=== PATIENT | female | born 1965 | race Caucasian/White ===

== ENCOUNTER 2021-01-10 08:56 | Outpatient (CLI) | payer BC | END 2021-01-10 08:57 | disposition home or self-care (01) | LOC: DTY/OP 08:56 | PROVIDERS: ATTEND Specialist | DX: Z01.818 Encounter for other preprocedural examination (principal); E66.01 Morbid (severe) obesity due to excess calories | CPT/HCPCS: 97802 ==

== ENCOUNTER 2021-02-23 12:43 | Outpatient (CLI) | payer BC ==
[2021-02-23 15:02] LABS: Anion Gap 17 mmol/L (10-20); BUN (Urea Nitrogen) 19 mg/dL (9.8-20.1); Calc. Creatinine Clearance 0 mL/min (70-130); Calcium 9.7 mg/dL (7.8-10.44); Carbon Dioxide 25 mmol/L (22-29); Chloride 101 mmol/L (98-107); Glucose 79 mg/dL (70-105); Potassium 3.2 mmol/L (3.5-5.1); Sodium 140 mmol/L (136-145)
[2021-02-24 12:43] LABS: SARS-CoV-2 PCR by NAA Not Detected (NotDetected)
== END 2021-02-23 12:44 | disposition home or self-care (01) ==
LOC: LABBT 12:43
PROVIDERS: ATTEND Specialist
DX: Z01.812 Encounter for preprocedural laboratory examination (principal); S93.409A Sprain of unspecified ligament of unspecified ankle, initial encounter; K64.9 Unspecified hemorrhoids; K59.09 Other constipation; I10 Essential (primary) hypertension; E66.01 Morbid (severe) obesity due to excess calories; M25.561 Pain in right knee; M25.562 Pain in left knee; F41.9 Anxiety disorder, unspecified; Z68.36 Body mass index [BMI] 36.0-36.9, adult; Z20.822 Contact with and (suspected) exposure to COVID-19
CPT/HCPCS: 80048; U0003; U0005

== ENCOUNTER 2021-02-23 12:45 | Inpatient (IN) | payer BC ==
[2021-02-27 12:03] VITALS: BMI 38.0
[2021-02-28] MEDS ORDERED: Acetaminophen 500 MG TAB ONE (06:05)
[2021-02-28] MEDS ORDERED: cefOXitin Sodium/Dextrose 2 GM/50 ML BAG ONE (06:06)
[2021-02-28] MEDS ORDERED: Scopolamine 1.5 mg/72 hour Patch ONE (06:06)
[2021-02-28] MEDS ORDERED: Ketorolac Tromethamine 30 MG/ML VIAL ONE (06:06)
[2021-02-28] MEDS ORDERED: Heparin 5,000 UNITS/ML VIAL ONE (06:22)
[2021-02-28] MEDS ORDERED: Fentanyl 100 MCG/2 ML VIAL ONE ×3 (07:02→10:00)
[2021-02-28] MEDS ORDERED: Bupivacaine 0.25% HCL 30 ML VIAL ONE (07:11)
[2021-02-28] MEDS ORDERED: Lidocaine 1% w/Epinephrine 1:100K 20 ML VIAL ONE (07:11)
[2021-02-28 07:25] LABS: Hemoglobin 12.8 g/dL (12.0-16.0); Mean Corpuscular HGB CONC 32.8 g/dL (32.0-36.0); Mean Corpuscular Hemoglobin 28.1 pg (27.0-31.0); Mean Corpuscular Volume 85.5 fL (78.0-98.0); Mean Platelet Volume 8.8 fL (7.4-10.4); Platelet Count 153 thou/uL (130-400); RBC Distribution Width 12.5 % (11.5-14.5); Red Blood Cell (RBC) Count 4.58 mill/uL (4.20-5.40)
[2021-02-28] MEDS ORDERED: Midazolam HCl 2 mg/2 ml Vial ONE (07:32)
[2021-02-28 07:35] LABS: Anion Gap 16 mmol/L (10-20); BUN (Urea Nitrogen) 11 mg/dL (9.8-20.1); Calc. Creatinine Clearance 90 mL/min (70-130); Calcium 8.9 mg/dL (7.8-10.44); Carbon Dioxide 23 mmol/L (22-29); Chloride 102 mmol/L (98-107); Glucose 94 mg/dL (70-105); Sodium 138 mmol/L (136-145)
[2021-02-28] MEDS ORDERED: Rocuronium Bromide 10 MG/ML (10ML VIAL) ONE (07:44)
[2021-02-28] MEDS ORDERED: Dexamethasone 20 MG/5 ML VIAL ONE (07:44)
[2021-02-28] MEDS ORDERED: Glycopyrrolate 0.2 MG/ML 5 ML SYRINGE ONE (07:44)
[2021-02-28] MEDS ORDERED: Lidocaine 1% PF 5 ML VIAL ONE (07:44)
[2021-02-28] MEDS ORDERED: PROPOFOL 200 MG/20 ML VIAL ONE (07:44)
[2021-02-28] MEDS ORDERED: Metoclopramide HCl 10 MG/2 ML VIAL ONE (07:44)
[2021-02-28] MEDS ORDERED: Ondansetron PF 4 MG/2 ML Vial ONE (07:44)
[2021-02-28 07:45] LABS: Potassium 2.8 mmol/L (3.5-5.1)
[2021-02-28 07:46] LABS: Band 1 % (5-11); Eosinophils 3 % (0-10); Lymphocytes 32 % (21-51); MDiff Complete? YES; Monocytes 7 % (0-10); Neutrophil 51 % (42-75); RBC Morphology Normal; Reactive Lymphocytes 5 % (0-10)
[2021-02-28] MEDS ORDERED: Ondansetron PF 4 MG/2 ML Vial IVP PRN (07:48)
[2021-02-28] MEDS ORDERED: Promethazine HCl 25 MG/ML VIAL IM PRN (07:48)
[2021-02-28] MEDS ORDERED: Morphine 4 MG/ML VIAL SLOW IVP PRN (07:48)
[2021-02-28] MEDS ORDERED: Morphine 2 MG/ML VIAL SLOW IVP PRN (07:48)
[2021-02-28] MEDS ORDERED: diphenhydrAMINE 50 MG/ML VIAL IVP PRN (07:48)
[2021-02-28] MEDS ORDERED: hydrALAZINE 20 MG/ML VIAL SLOW IVP PRN (07:48)
[2021-02-28 08:22] LABS: Hemoglobin A1c 5.1 % (4.0-6.0)
[2021-02-28] MEDS ORDERED: Sodium Chloride 0.9% (PF) 10 ML VIAL FS PRN (08:45)
[2021-02-28] MEDS ORDERED: Promethazine HCl 25 MG/ML VIAL ONE (09:26)
[2021-02-28] MEDS: Potassium Chloride 20 MEQ in Lactated Ringer's 1,000 ML IV SCH ×2 (11:00→17:07)
[2021-02-28] MEDS: ALPRAZolam 1 MG TAB PO SCH ×2 (11:23→21:54)
[2021-02-28] MEDS: Bupropion 150 MG XL TAB PO SCH (11:23)
[2021-02-28] MEDS: Pantoprazole 40 MG VIAL IVP SCH (11:23)
[2021-02-28] MEDS: Ketorolac Tromethamine 30 MG/ML VIAL IVP SCH ×3 (13:31→23:31)
[2021-02-28] MEDS: Hydrocodone-Acetamin 15 ML UDCUP PO PRN ×2 (13:34→18:30)
[2021-02-28] MEDS ORDERED: Enoxaparin Sodium 40 MG/0.4 ML SYRINGE SC SCH (21:00)
[2021-02-28] MEDS ORDERED: Acetaminophen 500 MG TAB PO PRN (21:11)
[2021-02-28] MEDS: QUEtiapine Fumarate ER 50 MG TAB PO SCH (21:54)
[2021-03-01] MEDS: Potassium Chloride 20 MEQ in Lactated Ringer's 1,000 ML IV SCH ×3 (00:22→16:15)
[2021-03-01] MEDS: Hydrocodone-Acetamin 15 ML UDCUP PO PRN ×2 (04:34→12:05)
[2021-03-01] MEDS: Levothyroxine Sodium 50 MCG TAB PO SCH (06:18)
[2021-03-01] MEDS: Ketorolac Tromethamine 30 MG/ML VIAL IVP SCH ×3 (06:18→18:57)
[2021-03-01 06:24] LABS: #Monocytes 0.7 thou/uL (0.11-0.59); #Neutrophils 7.3 thou/uL (1.40-6.50); %Basophils 0.1 % (0.0-1.0); %Eosinophils 0.1 % (0.0-10.0); %Lymphocytes 11.5 % (21.0-51.0); %Monocytes 7.5 % (0.0-10.0); %Neutrophils 80.8 % (42.0-75.0); Hemoglobin 11.3 g/dL (12.0-16.0); Mean Corpuscular HGB CONC 34.5 g/dL (32.0-36.0); Mean Corpuscular Hemoglobin 29.1 pg (27.0-31.0); Mean Corpuscular Volume 84.5 fL (78.0-98.0); Mean Platelet Volume 7.7 fL (7.4-10.4); Platelet Count 250 thou/uL (130-400); RBC Distribution Width 12.3 % (11.5-14.5); Red Blood Cell (RBC) Count 3.89 mill/uL (4.20-5.40); White Blood Cell (WBC) Count 9.1 thou/uL (4.8-10.8)
[2021-03-01 06:43] LABS: Anion Gap 14 mmol/L (10-20); BUN (Urea Nitrogen) 9 mg/dL (9.8-20.1); Calc. Creatinine Clearance 102 mL/min (70-130); Calcium 8.5 mg/dL (7.8-10.44); Carbon Dioxide 27 mmol/L (22-29); Chloride 102 mmol/L (98-107); Glucose 117 mg/dL (70-105); Sodium 140 mmol/L (136-145)
[2021-03-01 06:54] LABS: Potassium 2.7 mmol/L (3.5-5.1)
[2021-03-01] MEDS ORDERED: Potassium Chloride 40 MEQ in Premix Bag 1 BAG IVPB SCH (08:15)
[2021-03-01] MEDS ORDERED: Potassium Chloride 20 MEQ TAB PO SCH (08:15)
[2021-03-01] MEDS: Pantoprazole 40 MG VIAL IVP SCH (08:49)
[2021-03-01] MEDS: Bupropion 150 MG XL TAB PO SCH (08:49)
[2021-03-01] MEDS: ALPRAZolam 1 MG TAB PO SCH ×2 (08:55→20:35)
[2021-03-01] MEDS: Potassium Chloride 20 MEQ in Premix Bag 1 BAG IVPB SCH ×2 (10:51→15:00)
[2021-03-01] MEDS ORDERED: Acetaminophen 325 MG TAB PO PRN ×2 (14:05→14:06)
[2021-03-01] MEDS ORDERED: HYDROcodone/Acetaminophen 5/325 mg Tablet PO PRN (14:07)
[2021-03-01] MEDS ORDERED: traMADol HCl 50 MG TAB PO PRN ×2 (14:08)
[2021-03-01] MEDS: HYDROcodone/Acetaminophen 5/325 mg Tablet PO PRN (18:57)
[2021-03-01] MEDS: QUEtiapine Fumarate ER 50 MG TAB PO SCH (20:35)
[2021-03-02] MEDS: Ketorolac Tromethamine 30 MG/ML VIAL IVP SCH ×3 (00:28→12:55)
[2021-03-02] MEDS: Potassium Chloride 20 MEQ in Lactated Ringer's 1,000 ML IV SCH ×3 (01:28→09:00)
[2021-03-02] MEDS: Levothyroxine Sodium 50 MCG TAB PO SCH (05:47)
[2021-03-02 05:58] LABS: Anion Gap 11 mmol/L (10-20); BUN (Urea Nitrogen) 10 mg/dL (9.8-20.1); Calc. Creatinine Clearance 103 mL/min (70-130); Calcium 8.4 mg/dL (7.8-10.44); Carbon Dioxide 27 mmol/L (22-29); Chloride 104 mmol/L (98-107); Glucose 88 mg/dL (70-105); Sodium 139 mmol/L (136-145)
[2021-03-02 06:00] LABS: Potassium 2.9 mmol/L (3.5-5.1)
[2021-03-02] MEDS ORDERED: Potassium Chloride 20 MEQ TAB PO SCH ×3 (06:30→11:00)
[2021-03-02] MEDS: Bupropion 150 MG XL TAB PO SCH (07:53)
[2021-03-02] MEDS: Potassium Chloride 20 MEQ in Premix Bag 1 BAG IVPB SCH ×2 (07:54→11:36)
[2021-03-02] MEDS: Pantoprazole 40 MG VIAL IVP SCH (07:55)
[2021-03-02] MEDS: ALPRAZolam 1 MG TAB PO SCH (08:10)
[2021-03-02] MEDS ORDERED: Enoxaparin Sodium 40 MG/0.4 ML SYRINGE SC SCH (09:00)
[2021-03-02] MEDS ORDERED: Ondansetron ODT 8 MG TAB SL PRN (11:33)
[2021-03-02] MEDS: BREXPIPRAZOLE 0.25 MG PO SCH ×3 (11:37→11:57)
[2021-03-02 11:49] VITALS: BP 112/76; TEMP 98.6
[2021-03-02] MEDS: HYDROcodone/Acetaminophen 5/325 mg Tablet PO PRN (12:56)
== END 2021-03-02 15:39 | disposition home or self-care (01) | DRG 620 ==
LOC: SURG A 02-28 06:02 → SURG B 02-28 10:28
PROVIDERS: ADMIT Specialist; ATTEND Specialist
PROC: 0DB64Z3 Excision of Stomach, Percutaneous Endoscopic Approach, Vertical (ICD-10-PCS; principal; 2021-02-28)
PROC: 0DJ08ZZ Inspection of Upper Intestinal Tract, Via Natural or Artificial Opening Endoscopic (ICD-10-PCS; 2021-02-28)
DX: E66.01 Morbid (severe) obesity due to excess calories (principal); K95.89 Other complications of other bariatric procedure; I10 Essential (primary) hypertension; M25.50 Pain in unspecified joint; E87.6 Hypokalemia; Y84.8 Other medical procedures as the cause of abnormal reaction of the patient, or of later complication, without mention of misadventure at the time of the procedure; F32.9 Major depressive disorder, single episode, unspecified; Z68.36 Body mass index [BMI] 36.0-36.9, adult
CPT/HCPCS: 36415; 80048; 83036; 85025; 88307; C9113; J0694; J1100; J1644; J1650; J1885; J2250; J2405; J2550; J2704; J2765; J3010; J3480; J7120; S0020

== ENCOUNTER 2021-03-11 11:16 | Day surgery (SDC) | payer BC ==
[2021-03-11 12:09] VITALS: BP 140/90; TEMP 98.1
[2021-03-11] MEDS: Multivitamins, Adult 10 ML in Sodium Chloride 0.9% 1,000 ML IV SCH ×2 (12:59→15:33)
[2021-03-11] MEDS ORDERED: ALPRAZolam 1 MG TAB PO PRN (13:29)
[2021-03-11 16:51] LABS: Anion Gap 19 mmol/L (10-20); BUN (Urea Nitrogen) 16 mg/dL (9.8-20.1); Calc. Creatinine Clearance 0 mL/min (70-130); Calcium 8.8 mg/dL (7.8-10.44); Carbon Dioxide 19 mmol/L (22-29); Chloride 102 mmol/L (98-107); Glucose 69 mg/dL (70-105); Potassium 3.6 mmol/L (3.5-5.1); Sodium 136 mmol/L (136-145)
== END 2021-03-11 17:45 | disposition home or self-care (01) ==
LOC: ONC/OP 11:16 → ONC 11:19 → ONC/OP 17:45
PROVIDERS: ATTEND Surgery
DX: Z02.9 Encounter for administrative examinations, unspecified (principal); Z88.1 Allergy status to other antibiotic agents
CPT/HCPCS: 36415; 80048; J7050

== ENCOUNTER 2021-05-25 08:26 | Day surgery (SDC) | payer BC ==
[2021-05-25] MEDS ORDERED: Sodium Chloride 0.9% 1,000 ML IV SCH (08:30)
[2021-05-25] MEDS ORDERED: Multivitamins, Adult 10 ML, Thiamine HCl 100 MG in Sodium Chloride 0.9% 1,000 ML IV SCH (08:30)
[2021-05-25] MEDS ORDERED: Ondansetron PF 4 MG/2 ML Vial IVP PRN (08:30)
[2021-05-25] MEDS ORDERED: Sodium Chloride 0.9% 20 ML ONE (08:34)
[2021-05-25 09:44] LABS: #Eosinphils 0.2 thou/uL (0.0-0.7); #Lymphocytes 1.5 thou/uL (1.20-3.40); #Monocytes 0.6 thou/uL (0.11-0.59); %Basophils 0.4 % (0.0-1.0); %Eosinophils 3.5 % (0.0-10.0); %Monocytes 10.6 % (0.0-10.0); %Neutrophils 57.3 % (42.0-75.0); Hemoglobin 12.3 g/dL (12.0-16.0); Mean Corpuscular HGB CONC 33.1 g/dL (32.0-36.0); Mean Corpuscular Hemoglobin 28.4 pg (27.0-31.0); Mean Corpuscular Volume 85.8 fL (78.0-98.0); Mean Platelet Volume 8.7 fL (7.4-10.4); Platelet Count 217 thou/uL (130-400); RBC Distribution Width 12.8 % (11.5-14.5); Red Blood Cell (RBC) Count 4.34 mill/uL (4.20-5.40); White Blood Cell (WBC) Count 5.2 thou/uL (4.8-10.8)
[2021-05-25 09:58] LABS: ALT (SGPT) 20 U/L (8-55); AST (SGOT) 15 U/L (5-34); Albumin 3.6 g/dL (3.5-5.0); Alkaline Phosphatase 90 U/L (40-110); Anion Gap 13 mmol/L (10-20); BUN (Urea Nitrogen) 22 mg/dL (9.8-20.1); Bilirubin, Total 0.5 mg/dL (0.2-1.2); Calc. Creatinine Clearance 0 mL/min (70-130); Calcium 8.6 mg/dL (7.8-10.44); Carbon Dioxide 21 mmol/L (22-29); Chloride 108 mmol/L (98-107); Globulin 2.2 g/dL (2.4-3.5); Glucose 100 mg/dL (70-105); Potassium 3.2 mmol/L (3.5-5.1); Protein, Total 5.8 g/dL (6.0-8.3); Sodium 139 mmol/L (136-145)
[2021-05-25 10:47] VITALS: BP 117/75; TEMP 98
== END 2021-05-25 11:21 | disposition home or self-care (01) ==
LOC: ONC/OP 08:26
PROVIDERS: ATTEND Specialist
DX: E86.0 Dehydration (principal); Z88.1 Allergy status to other antibiotic agents
CPT/HCPCS: 36415; 80053; 85025; 96361; 96365; 96366; J3411; J7050

== ENCOUNTER 2021-10-09 09:12 | Day surgery (SDC) | payer BC ==
[2021-10-09] MEDS ORDERED: Ondansetron PF 4 MG/2 ML Vial IVP PRN (09:14)
[2021-10-09] MEDS ORDERED: Sodium Chloride 0.9% 1,000 ML IV SCH (09:15)
[2021-10-09] MEDS ORDERED: Multivitamins, Adult 10 ML, Thiamine HCl 100 MG in Sodium Chloride 0.9% 1,000 ML IV SCH (09:15)
[2021-10-09] MEDS ORDERED: Sodium Chloride 0.9% 10 ML ONE ×2 (09:25)
[2021-10-09 10:10] VITALS: BP 113/70; TEMP 98
[2021-10-09] MEDS ORDERED: Ondansetron PF 4 MG/2 ML Vial ONE (10:47)
== END 2021-10-09 14:50 | disposition home or self-care (01) ==
LOC: ONC/OP 09:12
PROVIDERS: ATTEND Specialist
DX: E86.0 Dehydration (principal); Z88.1 Allergy status to other antibiotic agents
CPT/HCPCS: 96365; 96366; 96375; J2405; J3411; J7050

== ENCOUNTER 2023-03-19 14:06 | Outpatient (CLI) | payer BC ==
[~2023-03-19 14:06] MED LIST: Magnevist 469MG/ML 20 ML VIAL ONE
== END 2023-03-19 14:07 | disposition home or self-care (01) ==
LOC: BICMRI 14:06
PROVIDERS: ATTEND Ophthalmology
DX: H46.9 Unspecified optic neuritis (principal)
CPT/HCPCS: 70543; 70553; 82565

== ENCOUNTER 2023-10-27 15:34 | Outpatient (CLI) | payer BC | END 2023-10-27 15:35 | disposition home or self-care (01) | LOC: BICMAMMO 15:34 | PROVIDERS: ATTEND Obstetrics & Gynecology | DX: Z12.31 Encounter for screening mammogram for malignant neoplasm of breast (principal); Z80.3 Family history of malignant neoplasm of breast | CPT/HCPCS: 77063; 77067 ==

== ENCOUNTER 2024-02-12 09:18 | Outpatient (CLI) | payer BC ==
[2024-02-12] MEDS ORDERED: Iopamidol 370 76% 100 ML VIAL ONE (11:31)
== END 2024-02-12 09:19 | disposition home or self-care (01) ==
LOC: CT 09:18
PROVIDERS: ATTEND Physician Assistant Medical
DX: K56.1 Intussusception (principal); K59.00 Constipation, unspecified; K44.9 Diaphragmatic hernia without obstruction or gangrene; N28.89 Other specified disorders of kidney and ureter; Z98.890 Other specified postprocedural states
CPT/HCPCS: 74177; 82565; Q9967

== ENCOUNTER 2024-03-18 14:00 | Inpatient (IN) | payer BC ==
[2024-03-18 15:04] VITALS: BMI 24.7
[2024-03-23] MEDS ORDERED: Bupivacaine PF 0.5% 30 ML VIAL ONE (08:43)
[2024-03-23] MEDS ORDERED: Midazolam HCl 2 mg/2 ml Vial ONE (08:43)
[2024-03-23] MEDS ORDERED: fentaNYL 50 mcg/mL 1 mL Vial ONE (08:43)
[2024-03-23] MEDS ORDERED: PROPOFOL 20 ML ONE (08:59)
[2024-03-23] MEDS ORDERED: Ondansetron PF 4 MG/2 ML Vial ONE ×2 (09:24→12:07)
[2024-03-23] MEDS ORDERED: Lidocaine 1% PF 5 ML VIAL ONE (09:24)
[2024-03-23] MEDS ORDERED: Rocuronium Bromide 10 MG/ML (10ML VIAL) ONE (09:24)
[2024-03-23] MEDS ORDERED: Ketorolac Tromethamine 30 MG (1 mL) VIAL ONE ×2 (09:24)
[2024-03-23] MEDS ORDERED: Bupivacaine HCl 0.5%/Epinephrine 1:200,000/PF 30 ml Vial ONE (09:25)
[2024-03-23] MEDS ORDERED: Lidocaine 2% 6 ML (Jelly) SYR ONE (09:52)
[2024-03-23] MEDS ORDERED: MINERAL OIL/WHITE PETROLATUM 3.5 GM TUBE ONE (09:52)
[2024-03-23] MEDS ORDERED: fentaNYL PF 100 MCG/2 ML SYRINGE ONE ×2 (09:53→13:11)
[2024-03-23] MEDS ORDERED: PROPOFOL 60 ML ONE (09:53)
[2024-03-23] MEDS ORDERED: LevoFLOXacin D5W 500 mg (100 mL) BAG ONE (10:13)
[2024-03-23] MEDS ORDERED: Dexamethasone 20 MG/5 ML VIAL ONE (10:35)
[2024-03-23] MEDS ORDERED: PHENYLEPHRINE-NS 100 MCG/ML 10 ML SYRINGE ONE (10:36)
[2024-03-23] MEDS ORDERED: ePHEDrine Sulfate 50 MG/10 ML VIAL ONE (10:40)
[2024-03-23] MEDS ORDERED: SUGAMMADEX SODIUM 200 MG/2 ML VIAL ONE (12:07)
[2024-03-23] MEDS ORDERED: traMADol HCl 50 MG TAB PO PRN (13:14)
[2024-03-23] MEDS ORDERED: hydrALAZINE 20 MG/ML VIAL SLOW IVP PRN (13:14)
[2024-03-23] MEDS ORDERED: Ipratropium/Albuterol 3 ML NEB NEB PRN (13:14)
[2024-03-23] MEDS ORDERED: Promethazine HCl 25 MG/ML VIAL IM PRN (13:14)
[2024-03-23] MEDS ORDERED: ALPRAZolam 0.5 MG TAB PO PRN (13:14)
[2024-03-23] MEDS ORDERED: HYDROmorphone 0.5 MG/0.5 ML SYRINGE ONE ×3 (13:24→14:04)
[2024-03-23] MEDS ORDERED: Morphine 4 MG/ML VIAL SLOW IVP PRN (14:14)
[2024-03-23] MEDS: Acetaminophen 500 MG TAB PO SCH (15:06)
[2024-03-23] MEDS: D5 1/2 NS w/20 mEq KCL 1,000 ML IV SCH (15:06)
[2024-03-23] MEDS: traMADol HCl 50 MG TAB PO PRN (18:25)
[2024-03-23] MEDS: Ketorolac Tromethamine 30 MG (1 mL) VIAL IVP PRN (20:15)
[2024-03-23] MEDS: QUEtiapine 100 MG TAB PO SCH (20:16)
[2024-03-23] MEDS: Gabapentin 300 MG CAP PO SCH (20:16)
[2024-03-23] MEDS: Famotidine 20 MG TAB PO SCH (20:17)
[2024-03-23] MEDS ORDERED: Dextroamphetamine/Amphetamine [Adderall] 30 MG Tablet PO SCH (21:00)
[2024-03-23] MEDS: Famotidine/PF 20 mg/2ml Vial SLOW IVP SCH (21:00)
[2024-03-24] MEDS: Levothyroxine Sodium 50 MCG TAB PO SCH (05:44)
[2024-03-24 06:11] LABS: #Basophils Less than 0.03 10x3/uL (0.0-0.2); #Eosinphils Less than 0.03 10x3/uL (0.0-0.7); %Basophils 0.1 % (0.0-1.0); %Lymphocytes 5.2 % (21.0-51.0); %Monocytes 6.7 % (0.0-10.0); %Neutrophils 87.9 % (42.0-75.0); Hematocrit 34.2 % (36.0-47.0); Mean Corpuscular HGB CONC 32.2 g/dL (32.0-36.0); Mean Corpuscular Hemoglobin 29.3 pg (27.0-31.0); Mean Platelet Volume 10.4 fL (7.4-10.4); Platelet Count 180 10x3/uL (130-400); RBC Distribution Width 12.8 % (11.5-14.5); Red Blood Cell (RBC) Count 3.76 mill/uL (4.20-5.40)
[2024-03-24 06:23] LABS: Anion Gap 11 mmol/L (10-20); BUN (Urea Nitrogen) 7 mg/dL (9.8-20.1); Calc. Creatinine Clearance 71 mL/min (70-130); Calcium 8.2 mg/dL (7.8-10.44); Carbon Dioxide 17 mmol/L (22-29); Chloride 113 mmol/L (98-107); Estimated GFR 82; Glucose 131 mg/dL (70-105); Potassium 4.5 mmol/L (3.5-5.1); Sodium 136 mmol/L (136-145)
[2024-03-24] MEDS ORDERED: BREXPIPRAZOLE 0.25 MG PO SCH (09:00)
[2024-03-24] MEDS ORDERED: DEXTROMETHORPHAN HBR PO SCH (09:00)
[2024-03-24] MEDS ORDERED: BUPROPION PO SCH (09:00)
[2024-03-24] MEDS: Enoxaparin 40 MG (0.4 mL) SYRINGE SC SCH (09:19)
[2024-03-24] MEDS: dilTIAZem CD 240 MG CAP PO SCH (09:19)
[2024-03-24] MEDS: medroxyPROGESTERone Acetate 5 MG TAB PO SCH (09:20)
[2024-03-24] MEDS: LevoFLOXacin 500 mg/D5W 500 MG in Premix 1 BAG IVPB SCH (09:20)
[2024-03-24] MEDS: Ondansetron PF 4 MG/2 ML Vial IVP PRN (19:08)
[2024-03-25 07:42] VITALS: TEMP 97.7
[2024-03-25 09:41] VITALS: BP 127/86
== END 2024-03-25 11:07 | disposition home or self-care (01) | DRG 331 ==
LOC: SURG A 03-23 07:41
PROVIDERS: ADMIT Surgery; ATTEND Surgery
PROC: 0DBF4ZZ Excision of Right Large Intestine, Percutaneous Endoscopic Approach (ICD-10-PCS; principal; 2024-03-23)
PROC: 8E0W4CZ Robotic Assisted Procedure of Trunk Region, Percutaneous Endoscopic Approach (ICD-10-PCS; 2024-03-23)
PROC: 3E033XZ Introduction of Vasopressor into Peripheral Vein, Percutaneous Approach (ICD-10-PCS; 2024-03-23)
DX: K56.1 Intussusception (principal); K63.89 Other specified diseases of intestine
CPT/HCPCS: 36415; 36416; 80048; 85025; 88307; A4314; A4333; J0665; J1100; J1170; J1650; J1885; J1956; J2250; J2405; J2704; J3010; J3480

== ENCOUNTER 2024-03-18 14:04 | Outpatient (CLI) | payer BC ==
[2024-03-18 15:39] LABS: #Basophils 0.04 10x3/uL (0.0-0.2); #Monocytes 0.38 10x3/uL (0.0-1.1); #Neutrophils 2.68 10x3/uL (1.5-8.4); %Basophils 0.8 % (0.0-2.0); %Eosinophils 2.1 % (0.0-6.0); %Lymphocytes 33.9 % (18.0-47.0); %Monocytes 7.8 % (0.0-10.0); Hematocrit 37.3 % (34.9-44.5); Hemoglobin 12.9 g/dL (12.0-15.5); Mean Corpuscular HGB CONC 34.6 g/dL (32.0-36.0); Mean Corpuscular Hemoglobin 29.6 pg (27.0-33.0); Mean Corpuscular Volume 85.6 fL (81.6-98.3); Mean Platelet Volume 10.3 fL (7.4-10.4); Platelet Count 257 10x3/uL (150-450); RBC Distribution Width 12.5 % (11.5-14.5); Red Blood Cell (RBC) Count 4.36 10x6/uL (3.90-5.03); White Blood Cell (WBC) Count 4.9 10x3/uL (3.5-10.5)
[2024-03-18 15:48] LABS: Anion Gap 11 mmol/L (10-20); BUN (Urea Nitrogen) 15 mg/dL (9.8-20.1); Calc. Creatinine Clearance 0 mL/min (70-130); Calcium 9.3 mg/dL (7.8-10.44); Carbon Dioxide 27 mmol/L (22-29); Chloride 104 mmol/L (98-107); Estimated GFR 64; Glucose 76 mg/dL (70-105); Potassium 3.8 mmol/L (3.5-5.1); Sodium 138 mmol/L (136-145)
[2024-03-18 20:18] LABS: Hemoglobin A1c 5.1 % (4.0-6.0)
== END 2024-03-18 14:05 | disposition home or self-care (01) ==
LOC: LABBT 14:04
PROVIDERS: ATTEND Surgery
DX: Z01.818 Encounter for other preprocedural examination (principal); K56.1 Intussusception
CPT/HCPCS: 80048; 83036; 85025; 93005; 93010